=== PATIENT | female | born 1980 | race Caucasian/White ===

== ENCOUNTER 2016-07-01 06:15 | Emergency (ER) | payer OTHER ==
[~2016-07-01] VITALS: Ht 149.9 cm; Wt 62.1 kg
--- NOTE | 2016-07-01 06:24 | NUR ---
Placed in hallway.
[2016-07-01 06:26] VITALS: BP 130/51; PULSE 90; RESP 19; TEMP 97.9; O2SAT 100
--- NOTE | 2016-07-01 06:26 | NUR ---
Pt came in for routine traffic stop. Pt requires a BA draw. Will continue to monitor. No other injuries or complaints mentioned/noted. No distress noted.
[2016-07-01] MEDS ORDERED: DIET PILL PO (06:32)
--- NOTE | 2016-07-01 06:42 | NUR ---
Written and verbal consent obtained from patient for blood alcohol, name and verified by patient. Disinfected patient's skin with providone iodine that did not contain alcohol or other volatile organic compound. Collected the blood from the subject named by venipuncture, in the presence of Officer Michael with ID number [id number]. Used a sterile, dry hypodermic needle and dry vacuum blood collection. The dry vacuum blood collection was supplied by the officer named above. Withdrew a specimen of blood from LAC of the subject named above. Inverted the blood tube several times to ensure that the preservative and anticoagulant were thoroughly mixed in the blood specimen. I initialed the blood tube label for identification. The labeled blood tube was handed directly to the Officer named above. The blood tube stopper remained in place while I had possession of the blood tube. The Officer placed tube into envelope and sealed it in my presence. Envelope initialed by myself and Officer named above. Patient tolerated well, bandage applied, and bleeding controlled.
--- NOTE | 2016-07-01 06:50 | NUR ---
ER Dr. Peck at bedside examining patient.
[2016-07-01 06:52] VITALS: BP 130/51; PULSE 90; RESP 19; TEMP 97.9; O2SAT 100
--- NOTE | 2016-07-01 06:52 | NUR ---
Patient given written and verbal discharge instructions and verbalizes understanding. ER MD discussed with patient the results and treatment provided. Patient in stable condition. ID arm band removed. Patient educated on pain management and to follow up with PMD. Pain Scale 0/10. Opportunity for questions provided and answered.
== END 2016-07-01 06:52 ==
LOC: SED 06:15
DX: Z02.89 Encounter for other administrative examinations (principal)
CPT/HCPCS: 99283